=== PATIENT | female | born 1970 | race African-American/Black ===

== ENCOUNTER 2023-01-29 15:14 | Emergency (ER) | payer MEDICAID ==
[~2023-01-29] VITALS: Ht 170.2 cm; Wt 91.0 kg
[2023-01-29 15:18] VITALS: O2SAT 100
[2023-01-29] MEDS ORDERED: KETOROLAC 60MG/2ML VIAL IM ONE (15:45)
[2023-01-29] MEDS ORDERED: AMOXICILLIN/POTASSIUM CLAVULANATE 875/125MG TAB PO ONE (15:45)
[2023-01-29] MEDS ORDERED: IBUP-2030 MT (15:47)
[2023-01-29] MEDS ORDERED: AMOX1TAB16 MT (15:47)
[2023-01-29] MEDS ORDERED: DEXAMETHASONE 2MG TABLET PO ONE (16:00)
[2023-01-29 16:53] VITALS: BP 127/61; PULSE 99; RESP 18; TEMP 102.7
== END 2023-01-29 16:54 | disposition home or self-care (01) ==
LOC: ER 15:14
DX: K04.7 Periapical abscess without sinus (principal)
CPT/HCPCS: 99283; 96372; J8540; J1885